=== PATIENT | female | born 1955 | race Caucasian/White ===

== ENCOUNTER 2021-04-03 13:57 | Emergency (ER) | payer OTHER ==
[2021-04-03 14:02] VITALS: BP 170/70; PULSE 79; TEMP 97.8; BMI 33.7
[2021-04-03] MEDS ORDERED: DIPHTH,PERTUSS(ACELL),TET 0.5 ML DISP.SYRIN IM ONE ×2 (15:05→15:08)
[2021-04-03] MEDS ORDERED: ACETAMINOPHEN 500 MG TABLET (FP) PO ONE (15:05)
[2021-04-03] MEDS ORDERED: ACETAMINOPHEN 500 MG TABLET (FP) ONE (15:08)
== END 2021-04-03 15:41 | disposition home or self-care (01) ==
LOC: JERFT 13:57
PROC: 3E0234Z Introduction of Serum, Toxoid and Vaccine into Muscle, Percutaneous Approach (ICD-10-PCS; principal; 2021-04-03)
DX: S61.313A Laceration without foreign body of left middle finger with damage to nail, initial encounter (principal)
CPT/HCPCS: 90471; 90715; 99284-25